=== PATIENT | female | born 1970 ===

== ENCOUNTER 2021-02-05 12:14 | Emergency (ER) | payer SELFPAY ==
[2021-02-05 12:20] VITALS: BP 112/53
--- NOTE | 2021-02-05 13:23 | Emergency Department Report ---
ED Extremity Problem HPI - General Chief complaint: Extremity Injury, Lower Stated complaint: BILATERAL KNEE PAIN Time Seen by Provider: 02/05/21 13:18 Source: patient, family Mode of arrival: Ambulatory Limitations: Language Barrier - History of Present Illness Initial comments: ED The patient was evaluated in the emergency department for symptoms described in the history of present illness. He/she was evaluated in the context of the global COVID-19 pandemic, which necessitated consideration that the patient might be at risk for infection with the virus that causes COVID-19. Institutional protocols and algorithms that pertain to the evaluation of patients at risk for COVID-19 are in a state of rapid change based on information released by regulatory bodies including the CDC and federal and state organizations. These policies and algorithms were followed during the patient's care in the emergency department. Please note that these policies, procedures and recommendations changed on a rapid basis. 51-year-old female brought in by her stepdaughter for bilateral knee pain. Patient states that she had her knees MRI and comes in for pain management. Patient states she has been taken [id number] Tylenol and Motrin without much relief. Patient denies any recent traumas no falls no MD Complaint: joint swelling, joint paint Onset/Timin -: week(s) History of Same: Yes -: Yes arthralgia Severity scale (0 -10): 7 Quality: aching, sharp Consistency: constant Improves with: nothing Worsens with: weight bearing, walking Associated Symptoms: denies other symptoms ED Review of Systems ROS: Stated complaint: BILATERAL KNEE PAIN Other details as noted in HPI Comment: All other systems reviewed and negative ED Past Medical Hx - Past Medical History Previous Medical History?: No - Surgical History Past Surgical History?: No ED Physical Exam - General Limitations: Language Barrier General appearance: alert, in no apparent distress - Head Head exam: Present: atraumatic, normocephalic - Eye Eye exam: Present: normal appearance - ENT ENT exam: Present: mucous membranes moist - Neck Neck exam: Present: normal inspection, full ROM - Cardiovascular Cardiovascular Exam: Present: regular rate, normal rhythm. Absent: systolic murmur, diastolic murmur, rubs, gallop - Extremities Exam Extremities exam: Present: normal inspection, full ROM - Back Exam Back exam: Present: normal inspection - Neurological Exam Neurological exam: Present: alert, oriented X3 - Psychiatric Psychiatric exam: Present: normal affect, normal mood - Skin Skin exam: Present: warm, dry, intact, normal color. Absent: rash ED Course Vital Signs 02/05/21 12:17 Temperature 98.2 F Pulse Rate 81 Respiratory 20 Rate Blood Pressure 112/53 [Right] O2 Sat by Pulse 97 Oximetry ED Medical Decision Making - Medical Decision Making 51-year-old female brought in by her stepdaughter for bilateral knee pain. Patient states that she had her knees MRI and comes in for pain management. Patient states she has been taken [id number] Tylenol and Motrin without much relief. Patient denies any recent traumas no falls no Recommend to follow-up with client engagement specialist. She can continue with [id number]-[id number] pain medication. Critical care attestation.: If time is entered above; I have spent that time in minutes in the direct care of this critically ill patient, excluding procedure time. ED Disposition Clinical Impression: Knee pain, bilateral Qualifiers: Chronicity: acute Qualified Code(s): M25.561 - Pain in right knee Disposition: HOME / SELF CARE / HOMELESS Is pt being admited?: No Does the pt Need Aspirin: No Condition: Stable Instructions: Patellofemoral Pain Syndrome, Acute Knee Pain, Adult, [id number] Additional Instructions: Recommend to follow up with orthopedic provider which is a bone specialist. Recomiende hacer un seguimiento con un proveedor ortopdico, que es un especialista en huesos. Referrals: NATALIIA BAHENA MD [Staff Physician] - 3-5 Days ANICETO RAMAN MD [Staff Physician] - 3-5 Days [facility] [Provider Group] - 3-5 Days Time of Disposition: 13:20 Print Language: SETS[place]
== END 2021-02-05 13:30 | disposition home or self-care (01) ==
LOC: ED 12:14
DX: M25.561 Pain in right knee (principal); M25.562 Pain in left knee
CPT/HCPCS: 99282